=== PATIENT | female | born 1990 | race American Indian/Alaskan Native ===

== ENCOUNTER 2018-12-04 13:23 | Emergency (ER) | payer OTHER ==
[2018-12-04] MEDS ORDERED: TORADOL IM STA (17:12)
[2018-12-04 17:19] VITALS: BP 141/80
[2018-12-04 17:43] LABS: HCG Qualitative,Urine Negative (Negative)
--- NOTE | 2018-12-04 19:05 | Emergency Department Report ---
ED General Adult HPI - General Chief complaint: Headache Stated complaint: HEADACHE Time Seen by Provider: 12/04/18 17:10 Source: patient Mode of arrival: Ambulatory Limitations: No Limitations - History of Present Illness Initial comments: 20-year-old -[place] female is a dull throbbing headache. States she is not quite able to tell how long the headaches been going on although the character and intensity of her headache. There is no known palliative or provocative factors to her knowledge. She denies any blurry vision, vomiting, syncope. She did take moveit headache about 11:00 today. No trauma involved. She is unsure about . -: Gradual Location: head Severity scale (0 -10): 2 Associated Symptoms: denies: confusion, chest pain, cough, diaphoresis, shortness of breath - Related Data Previous Rx's Medication Instructions Recorded Last Taken Type HYDROcodone/APAP 5-325 [[place] 1 each PO Q6HR PRN #12 tablet 09/29/14 Unknown Rx 5-325 mg TAB] raNITIdine HCl [Ranitidine] 150 mg PO Q12H #60 tablet 09/29/14 Unknown Rx HYDROcodone/APAP 5-325 [[place] 1 each PO Q6HR PRN #12 tablet 10/27/14 Unknown Rx 5-325 mg TAB] Promethazine [Phenergan TAB] 25 mg PO Q8HR PRN #15 tab 08/13/15 Unknown Rx Sulfamethoxazole/Trimethoprim 1 each PO BID #20 tablet 08/13/15 Unknown Rx [Bactrim DS TAB] Ketorolac [Toradol] 10 mg PO Q6H PRN #14 tablet 12/04/18 Unknown Rx Allergies Allergy/AdvReac Type Severity Reaction Status Date / Time No Known Allergies Allergy Unverified 09/29/14 11:42 ED Review of Systems ROS: Stated complaint: HEADACHE Other details as noted in HPI Constitutional: denies: chills, fever Eyes: denies: eye pain, eye discharge, vision change ENT: denies: ear pain, throat pain Respiratory: denies: cough, shortness of breath, wheezing Cardiovascular: denies: chest pain, palpitations Endocrine: no symptoms reported Gastrointestinal: denies: abdominal pain, nausea, diarrhea Genitourinary: denies: urgency, dysuria, discharge Musculoskeletal: denies: back pain, joint swelling, arthralgia Skin: denies: rash, lesions Neurological: headache. denies: weakness, paresthesias Psychiatric: denies: anxiety, depression Hematological/Lymphatic: denies: easy bleeding, easy bruising ED Past Medical Hx - Past Medical History Additional medical history: Unable to gain weight. HERPES - Surgical History Past Surgical History?: No - Social History Smoking Status: Never Smoker Substance Use Type: None - Medications Home Medications: Home Medications Medication Instructions Recorded Confirmed Last Taken Type HYDROcodone/APAP 5-325 [[place] 1 each PO Q6HR PRN #12 tablet 09/29/14 Unknown Rx 5-325 mg TAB] raNITIdine HCl [Ranitidine] 150 mg PO Q12H #60 tablet 09/29/14 Unknown Rx HYDROcodone/APAP 5-325 [[place] 1 each PO Q6HR PRN #12 tablet 10/27/14 Unknown Rx 5-325 mg TAB] Promethazine [Phenergan TAB] 25 mg PO Q8HR PRN #15 tab 08/13/15 Unknown Rx Sulfamethoxazole/Trimethoprim 1 each PO BID #20 tablet 08/13/15 Unknown Rx [Bactrim DS TAB] Ketorolac [Toradol] 10 mg PO Q6H PRN #14 tablet 12/04/18 Unknown Rx ED Physical Exam - General Limitations: No Limitations General appearance: alert, in no apparent distress - Head Head exam: Present: atraumatic, normocephalic - Eye Eye exam: Present: normal appearance, PERRL, EOMI, other (negative funduscopic examination). Absent: conjunctival injection, nystagmus Pupils: Present: normal accommodation - ENT ENT exam: Present: normal exam, mucous membranes moist, other (. Ears are clear). Absent: mucous membranes dry, TM's normal bilaterally, normal external ear exam - Neck Neck exam: Present: normal inspection, full ROM. Absent: tenderness, meningismus, lymphadenopathy, thyromegaly - Respiratory Respiratory exam: Present: normal lung sounds bilaterally. Absent: respiratory distress, wheezes, rales, chest wall tenderness, accessory muscle use, decreased breath sounds - Cardiovascular Cardiovascular Exam: Present: regular rate, normal rhythm. Absent: systolic murmur, diastolic murmur, rubs, gallop - GI/Abdominal GI/Abdominal exam: Present: soft, normal bowel sounds - Extremities Exam Extremities exam: Present: normal inspection, full ROM, normal capillary refill - Back Exam Back exam: Present: normal inspection - Neurological Exam Neurological exam: Present: alert, oriented X3, CN II-XII intact, normal gait. Absent: motor sensory deficit, reflexes normal - Psychiatric Psychiatric exam: Present: normal affect, normal mood. Absent: anxious, flat affect, manic - Skin Skin exam: Present: warm, dry, intact, normal color. Absent: rash ED Course Vital Signs 12/04/18 12/04/18 12/04/18 14:03 17:18 17:28 Temperature 97.8 F Pulse Rate 67 56 L Respiratory 16 18 18 Rate Blood Pressure 163/99 Blood Pressure 141/80 [Left] O2 Sat by Pulse 100 100 Oximetry ED Medical Decision Making - Medical Decision Making Headache, resolved after medication. Discussed with patient the need to follow with the primary care provider for further Critical care attestation.: If time is entered above; I have spent that time in minutes in the direct care of this critically ill patient, excluding procedure time. ED Disposition Clinical Impression: Headache Disposition: DC-01 TO HOME OR SELFCARE Is pt being admited?: No Does the pt Need Aspirin: No Condition: Stable Instructions: Acute Headache (ED) Prescriptions: Ketorolac [Toradol] 10 mg PO Q6H PRN #14 tablet PRN Reason: Pain Referrals: NESHA JUNE MD [Primary Care Provider] - 3-5 Days
== END 2018-12-04 19:15 | disposition home or self-care (01) ==
LOC: ED 13:23
DX: R51 Headache (principal)
CPT/HCPCS: 81025; 96372; 99283; J1885

== ENCOUNTER 2019-09-21 14:40 | Emergency (ER) | payer OTHER ==
--- NOTE | 2019-09-21 15:32 | Emergency Department Report ---
Blank Doc - Documentation Documentation: 29-year-old female that presents with URI symptoms. This initial assessment/diagnostic orders/clinical plan/treatment(s) is/are subject to change based on patient's health status, clinical progression and re- assessment by fellow clinical providers in the ED. Further treatment and workup at subsequent clinical providers discretion. Patient/guardians urged not to elope from the ED as their condition may be serious if not clinically assessed and managed. Initial orders include: 1- Patient sent to [facility] for further evaluation and treatment 2- CXR
[2019-09-21 15:35] VITALS: BP 124/81
--- NOTE | 2019-09-21 16:18 | Emergency Department Report ---
- General Chief Complaint: Upper Respiratory Infection Stated Complaint: VOMIT/COUGH/NO ENERGY/HEADACHE Time Seen by Provider: 09/21/19 15:31 Source: patient Mode of arrival: Ambulatory Limitations: No Limitations - History of Present Illness Initial Comments: Chief complaint: "I have no energy." HPI: This is a 29-year-old female who presents with fatigue bodyaches nasal congestion nausea. Multiple sick contacts at home. Subjective fever and chills. Symptoms have been present for the past 3 days. MD Complaint: fever, cough, sore throat, nasal congestion, other (fatigue bodyaches nausea) -: Gradual Severity: moderate Consistency: constant Improves With: nothing Worsens With: nothing Context: sick contacts Associated Symptoms: fever, myalgias, rhinorrhea, nasal congestion, sore throat, cough, nausea - Related Data Previous Rx's Medication Instructions Recorded Last Taken Type HYDROcodone/APAP 5-325 [[place] 1 each PO Q6HR PRN #12 tablet 09/29/14 Unknown Rx 5-325 mg TAB] raNITIdine HCl [Ranitidine] 150 mg PO Q12H #60 tablet 09/29/14 Unknown Rx HYDROcodone/APAP 5-325 [[place] 1 each PO Q6HR PRN #12 tablet 10/27/14 Unknown Rx 5-325 mg TAB] Promethazine [Phenergan TAB] 25 mg PO Q8HR PRN #15 tab 08/13/15 Unknown Rx Sulfamethoxazole/Trimethoprim 1 each PO BID #20 tablet 08/13/15 Unknown Rx [Bactrim DS TAB] Ketorolac [Toradol] 10 mg PO Q6H PRN #14 tablet 12/04/18 Unknown Rx Oseltamivir [Tamiflu] 75 mg PO BID 5 Days #10 capsule 09/21/19 Unknown Rx Allergies Allergy/AdvReac Type Severity Reaction Status Date / Time No Known Allergies Allergy Unverified 09/29/14 11:42 ED Review of Systems ROS: Stated complaint: VOMIT/COUGH/NO ENERGY/HEADACHE Other details as noted in HPI Comment: All other systems reviewed and negative Constitutional: chills, fever, malaise ENT: throat pain Respiratory: cough Gastrointestinal: nausea, vomiting ED Past Medical Hx - Past Medical History Previous Medical History?: Yes Additional medical history: Unable to gain weight. HERPES - Surgical History Past Surgical History?: No - Social History Smoking Status: Never Smoker Substance Use Type: None - Medications Home Medications: Home Medications Medication Instructions Recorded Confirmed Last Taken Type HYDROcodone/APAP 5-325 [[place] 1 each PO Q6HR PRN #12 tablet 09/29/14 Unknown Rx 5-325 mg TAB] raNITIdine HCl [Ranitidine] 150 mg PO Q12H #60 tablet 09/29/14 Unknown Rx HYDROcodone/APAP 5-325 [[place] 1 each PO Q6HR PRN #12 tablet 10/27/14 Unknown Rx 5-325 mg TAB] Promethazine [Phenergan TAB] 25 mg PO Q8HR PRN #15 tab 08/13/15 Unknown Rx Sulfamethoxazole/Trimethoprim 1 each PO BID #20 tablet 08/13/15 Unknown Rx [Bactrim DS TAB] Ketorolac [Toradol] 10 mg PO Q6H PRN #14 tablet 12/04/18 Unknown Rx Oseltamivir [Tamiflu] 75 mg PO BID 5 Days #10 capsule 09/21/19 Unknown Rx ED Physical Exam - General Limitations: No Limitations General appearance: alert, in no apparent distress - Head Head exam: Present: atraumatic, normocephalic - Eye Eye exam: Present: normal appearance - ENT ENT exam: Present: normal orophraynx, mucous membranes moist - Neck Neck exam: Present: normal inspection - Respiratory Respiratory exam: Present: normal lung sounds bilaterally. Absent: respiratory distress - Cardiovascular Cardiovascular Exam: Present: regular rate, normal rhythm, normal heart sounds. Absent: systolic murmur, diastolic murmur, rubs, gallop - GI/Abdominal GI/Abdominal exam: Present: soft, normal bowel sounds. Absent: distended, tenderness, guarding, rebound - Extremities Exam Extremities exam: Present: normal inspection - Back Exam Back exam: Present: normal inspection - Neurological Exam Neurological exam: Present: alert, oriented X3 - Psychiatric Psychiatric exam: Present: normal affect, normal mood - Skin Skin exam: Present: warm, dry, intact, normal color. Absent: rash ED Course Vital Signs 09/21/19 15:31 Temperature 99.3 F Pulse Rate 101 H Respiratory 18 Rate Blood Pressure 124/81 O2 Sat by Pulse 100 Oximetry ED Medical Decision Making - Medical Decision Making Ms. Reyna has clinical diagnosis of influenza. dc'd home Critical care attestation.: If time is entered above; I have spent that time in minutes in the direct care of this critically ill patient, excluding procedure time. ED Disposition Clinical Impression: Influenza Disposition: DC-01 TO HOME OR SELFCARE Is pt being admited?: No Does the pt Need Aspirin: No Condition: Stable Instructions: Influenza (ED) Prescriptions: Oseltamivir [Tamiflu] 75 mg PO BID 5 Days #10 capsule Referrals: NESHA JUNE MD [Staff Physician] - as needed
--- NOTE | 2019-09-21 16:44 | XRay Report ---
CHEST 2 VIEWS INDICATION / CLINICAL INFORMATION: cough. COMPARISON: None available. FINDINGS: SUPPORT DEVICES: None. HEART / MEDIASTINUM: No significant abnormality. LUNGS / PLEURA: No significant pulmonary or pleural abnormality. No pneumothorax. ADDITIONAL FINDINGS: No significant additional findings. IMPRESSION: 1. No acute findings. Signer Name: Tank Bernal MD Signed: 09/21/2019 4:40 PM Workstation Name: [id number]
== END 2019-09-21 16:45 | disposition home or self-care (01) ==
LOC: ED 14:40
DX: J11.1 Influenza due to unidentified influenza virus with other respiratory manifestations (principal); Z79.899 Other long term (current) drug therapy
CPT/HCPCS: 71046; 87116; 87430